=== PATIENT | female | born 1950 | race Caucasian/White ===

== ENCOUNTER 2021-09-10 09:20 | Day surgery (SDC) | payer MEDICARE, SELFPAY ==
[2021-09-03 15:39] VITALS: BMI 24.7
--- NOTE | 2021-09-08 13:29 | HO.ANESPROP2 ---
Documented by User: Tory Altamirano NP 09/08/21 13:30 HPI - Anesthesia Eval Consult details Narrative: 70yo F for Upper Endoscopy hx tonsilar CA s/p -ectomy 2018 [facility] Past Medical History Medical History Shankar's esophagus HTN (hypertension) Hx of breast cancer Hx of malignant neoplasm of tonsil Left bundle branch block (LBBB) Surgical History Surgical History History of esophagogastroduodenoscopy (EGD) History of removal of Port-a-Cath Hx of colonoscopy Hx of left mastectomy Hx of tonsillectomy Hx of tubal ligation Social History Social History Patient Tobacco Use Status: Former Tobacco user Quit Date: Tobacco use type: Cigarette Have you been hit, kicked, punched, or otherwise hurt by someone within the past year? If so, by whom?: No Are you DNR?: No Advance Directives: No (will bring dos) Advance Directives Information Provided: No Advance Directives on File: No Meds Allergies Allergy/AdvReac Type Severity Reaction Status Date / Time adhesive tape Allergy Rash Verified 09/03/21 15:38 Home Medications Medication Instructions Recorded Confirmed Last Taken Type atorvastatin 40 mg tablet 40 mg PO DAILY 09/03/21 09/03/21 Unknown History carvedilol 6.25 mg tablet 6.25 mg PO BID 09/03/21 09/03/21 Unknown History furosemide 20 mg tablet 20 mg PO BID 09/03/21 09/03/21 Unknown History valsartan 160 mg tablet 160 mg PO DAILY 09/03/21 09/03/21 Unknown History Exam Exam Date and Time: September 08, 2021 1329 Height,Weight and Vital Signs: Height 5 ft 3 in Weight 63.503 kg Assessment and Plan Assessment Anesthesia Assessment: Chart Reviewed Documented by User: Karime Schmidt MD 09/10/21 10:06 [facility] Past Medical History Medical History Shankar's esophagus HTN (hypertension) Hx of breast cancer Hx of malignant neoplasm of tonsil Left bundle branch block (LBBB) Family History Family history of problems with anesthesia: No Surgical History Surgical History History of esophagogastroduodenoscopy (EGD) History of removal of Port-a-Cath Hx of colonoscopy Hx of left mastectomy Hx of tonsillectomy Hx of tubal ligation History of Problems with Anesthesia: No Social History Social History Patient Tobacco Use Status: Former Tobacco user Quit Date: Tobacco use type: Cigarette Have you been hit, kicked, punched, or otherwise hurt by someone within the past year? If so, by whom?: No Are you DNR?: No Advance Directives: No (will bring dos) Advance Directives Information Provided: No Advance Directives on File: No Meds Allergies Allergy/AdvReac Type Severity Reaction Status Date / Time adhesive tape Allergy Rash Verified 09/03/21 15:38 Home Medications Medication Instructions Recorded Confirmed Last Taken Type atorvastatin 40 mg tablet 40 mg PO DAILY 09/03/21 09/03/21 Unknown History carvedilol 6.25 mg tablet 6.25 mg PO BID 09/03/21 09/03/21 Unknown History furosemide 20 mg tablet 20 mg PO BID 09/03/21 09/03/21 Unknown History valsartan 160 mg tablet 160 mg PO DAILY 09/03/21 09/03/21 Unknown History Exam Height,Weight and Vital Signs: Height 5 ft 3 in Weight 63.503 kg Vital Signs Temp Pulse Resp BP Pulse Ox 09/10/21 09:33 98.1 F 69 16 145/87 H 99 Airway Mallampati Class: II TM Dist: >3cm Neck ROM: Full Loose/Missing/Broken Teeth: No Heart: RRR Lungs: CTAB Assessment and Plan Assessment Anesthesia Assessment: Anesthesia Plan Discussed Final Anesthetic Review Family History of Problems with Anesthesia: No History of Problems with Anesthesia: No NPO: Yes ASA Class: II Final Preanesthetic Review: No Changes in Pt Med Stat, Meds/Allgs Chart Reviewed, Consent Obtained/Reviewed and Anes Risks/Benef Reviewed Patient Risk: Low Procedure Risk: Low Assessment/Block/Sedation in SS: Assess/Block/Sedation-SS Anesthetic Plan Anesthetic Plan: MAC: Disposition: Standard PACU
[2021-09-10 09:33] VITALS: BP 145/87; PULSE 69; RESP 16; TEMP 36.7; O2SAT 99
[2021-09-10] MEDS: Lactated Ringers 1,000 ML 100 ML IVCONT (09:45)
--- NOTE | 2021-09-10 10:13 | MHC.SHP ---
Pre-Procedural Eval Section A Date of Service: 09/10/21 The patient is an INPATIENT: No Changes since office visit: No Cold of Flu in the past 2 weeks, No New Medical Problems, No Changes in Medication and No Patient answered all questions The History & Physical has been completed within 30 days and I have reviewed it.: Yes Section B Chief Complaint: barretts Allergies: Allergies Allergy/AdvReac Type Severity Reaction Status Date / Time adhesive tape Allergy Rash Verified 09/03/21 15:38 Plan I have reviewed the history and physical and performed a pertinent physical examination on my patient. No changes have occurred unless specified.
--- NOTE | 2021-09-10 10:33 | P.BOP_ITS ---
Brief Operative Note Date of Service: 09/10/21 Pre-op diagnosis: barretts Post-op diagnosis: same Procedure: egd Surgeon: Vlad Zambrano Anesthesia: MAC Was an Fuel Storage Technician used for this Procedure?: No Estimated blood loss (mL): 2 Pathology: other (bxs antrum,egj) Condition: stable Disposition: PACU
[2021-09-10 10:37] VITALS: BP 80/45; PULSE 89; RESP 16; TEMP 36.4; O2SAT 98
--- NOTE | 2021-09-10 10:43 | OP_ITS ---
SURGEON: Vlad Zambrano MD INDICATIONS: Shankar's esophagus. PREOPERATIVE DIAGNOSIS: POSTOPERATIVE DIAGNOSIS: PROCEDURE PERFORMED: Upper endoscopy with biopsy. ESTIMATED BLOOD LOSS: COMPLICATIONS: ANESTHESIA: ASSISTANTS: SPECIMENS: MEDICATIONS: Monitored anesthesia care. DESCRIPTION OF PROCEDURE: History and physical performed. The risks and benefits of the procedure were explained to the patient. Informed consent was obtained. The patient was placed in the left lateral decubitus position. The Olympus video gastroscope was introduced into the esophagus, stomach, and duodenum. Examination was performed and the scope was removed. She tolerated the procedure well and was taken to recovery area in stable condition. FINDINGS: Esophagus: The esophagus was normal. There was a small sliding hiatal hernia. There was no esophagitis. Biopsies were obtained from the EG junction. Stomach: The stomach showed no evidence of masses, ulcers, or lesions. Antral biopsies were obtained. There was some mild nonspecific erythema involving the antrum. Duodenum: There was mild erythema involving the duodenal bulb. No ulcer was seen. The second portion was normal. IMPRESSION: Shankar's esophagus. RECOMMENDATION: Follow up the biopsy results. MD LONG Shaw/SHANIQUE / [id number]
[2021-09-10 10:52] VITALS: BP 127/68; PULSE 67; RESP 17; TEMP 36.4; O2SAT 98
== END 2021-09-10 11:18 | disposition home or self-care (01) ==
PROVIDERS: PCP Nurse Practitioner Family; Visit Provider Internal Medicine Gastroenterology
PROC: 0DJ08ZZ Inspection of Upper Intestinal Tract, Via Natural or Artificial Opening Endoscopic (ICD-10-PCS; CPT 43235; principal; 2021-09-10 10:40)
DX: K22.70 Barrett's esophagus without dysplasia (principal); K21.9 Gastro-esophageal reflux disease without esophagitis; K44.9 Diaphragmatic hernia without obstruction or gangrene; I10 Essential (primary) hypertension; Z79.899 Other long term (current) drug therapy; Z85.3 Personal history of malignant neoplasm of breast; Z85.818 Personal history of malignant neoplasm of other sites of lip, oral cavity, and pharynx; Z87.891 Personal history of nicotine dependence
CPT/HCPCS: 43239; 88305; 88342; J3010

== ENCOUNTER 2022-12-06 06:22 | Day surgery (SDC) | payer MEDICARE, SELFPAY ==
--- NOTE | 2022-12-05 10:23 | HO.ANESPROP2 ---
Documented by User: Tory Altamirano NP 12/05/22 10:24 HPI - Anesthesia Eval Consult details Narrative: 71yo F for Colonoscopy s/p EGD 2020 with MAC [facility] Past Medical History Medical History Shankar's esophagus HTN (hypertension) Hx of breast cancer Hx of malignant neoplasm of tonsil Left bundle branch block (LBBB) Family History Family history of problems with anesthesia: No Surgical History Surgical History History of esophagogastroduodenoscopy (EGD) History of removal of Port-a-Cath Hx of colonoscopy Hx of left mastectomy Hx of tonsillectomy Hx of tubal ligation History of Problems with Anesthesia: No Social History Social History Patient Tobacco Use Status: Former Tobacco user Quit Date: Tobacco use type: Cigarette Use of substances other than those prescribed or required for medical reasons: No Are you DNR?: No Advance Directives: No Advance Directives Information Provided: Yes Recently lost weight without trying: No Nutrition Risks: No Nutritional Risk Meds Allergies Allergy/AdvReac Type Severity Reaction Status Date / Time adhesive tape Allergy Rash Verified 09/03/21 15:38 Home Medications Medication Instructions Recorded Confirmed Last Taken Type atorvastatin 40 mg tablet 40 mg PO DAILY 09/03/21 12/06/22 Unknown History carvedilol 6.25 mg tablet 6.25 mg PO BID 09/03/21 12/06/22 12/06/22 History furosemide 20 mg tablet 20 mg PO BID 09/03/21 12/06/22 Unknown History valsartan 160 mg tablet 160 mg PO DAILY 09/03/21 12/06/22 12/06/22 History Exam Exam Date and Time: December 05, 2022 1023 Assessment and Plan Assessment Anesthesia Assessment: Chart Reviewed Final Anesthetic Review Family History of Problems with Anesthesia: No History of Problems with Anesthesia: No Documented by User: Siddhartha Hutson MD 12/06/22 07:27 PMFSH Past Medical History Medical History Shankar's esophagus HTN (hypertension) Hx of breast cancer Hx of malignant neoplasm of tonsil Left bundle branch block (LBBB) Surgical History Surgical History History of esophagogastroduodenoscopy (EGD) History of removal of Port-a-Cath Hx of colonoscopy Hx of left mastectomy Hx of tonsillectomy Hx of tubal ligation Social History Social History Patient Tobacco Use Status: Former Tobacco user Quit Date: Tobacco use type: Cigarette Use of substances other than those prescribed or required for medical reasons: No Are you DNR?: No Advance Directives: No Advance Directives Information Provided: Yes Recently lost weight without trying: No Nutrition Risks: No Nutritional Risk Meds Allergies Allergy/AdvReac Type Severity Reaction Status Date / Time adhesive tape Allergy Rash Verified 09/03/21 15:38 Home Medications Medication Instructions Recorded Confirmed Last Taken Type atorvastatin 40 mg tablet 40 mg PO DAILY 09/03/21 12/06/22 Unknown History carvedilol 6.25 mg tablet 6.25 mg PO BID 09/03/21 12/06/22 12/06/22 History furosemide 20 mg tablet 20 mg PO BID 09/03/21 12/06/22 Unknown History valsartan 160 mg tablet 160 mg PO DAILY 09/03/21 12/06/22 12/06/22 History Exam Airway Mallampati Class: II TM Dist: >3cm Neck ROM: Full Loose/Missing/Broken Teeth: No Heart: [id number] Lungs: cta b/l Assessment and Plan Assessment Anesthesia Assessment: Anesthesia Plan Discussed Final Anesthetic Review NPO: Yes ASA Class: III Final Preanesthetic Review: No Changes in Pt Med Stat, Meds/Allgs Chart Reviewed, Consent Obtained/Reviewed and Anes Risks/Benef Reviewed Patient Risk: Intermediate Procedure Risk: Low Assessment/Block/Sedation in SS: Assess/Block/Sedation-SS Anesthetic Plan Anesthetic Plan: MAC: and Agree w/ Assess. and Plan Disposition: Standard PACU
[2022-12-06 06:31] VITALS: BMI 25.8
[2022-12-06 06:38] VITALS: BP 171/100; PULSE 72; RESP 16; TEMP 36.3; O2SAT 99
[2022-12-06 06:50] VITALS: BP 159/90; PULSE 67
[2022-12-06] MEDS: Lactated Ringers 1,000 ML 100 ML IVCONT (06:59)
--- NOTE | 2022-12-06 07:36 | MHC.SHP ---
Pre-Procedural Eval Section A Date of Service: 12/06/22 Section B Chief Complaint: screening Details of Present Illness: see H&P no changes Relevant Family History (Specify if Yes): No Relevant Social History: None Present Medications: see Short Stay Collaborative assessment Medical History: No relevant PMH Allergies: Allergies Allergy/AdvReac Type Severity Reaction Status Date / Time adhesive tape Allergy Rash Verified 09/03/21 15:38 Review of Systems Sugical H&P ROS: Negative: Constitution, Cardiovascular, Respiratory, Neurological, Psychiatric, Hem-Onc, Allergic/Immunologic, Gastrointestinal, Genitourinary, Musculoskeletal, Integumentary, Endocrine and Eyes/Ears/Nose/Throat Exam Surgical H&P Exam: Normal: HEENT, Normal: Heart, Normal: Lungs, Normal: Extremities, Normal: Abdomen, Normal: Skin and Normal: Neurological Plan Diagnosis/Plan: Unchanged I have reviewed the history and physical and performed a pertinent physical examination on my patient. No changes have occurred unless specified. Time Spent With Patient Time: Total time managing care of this patient today ____ minutes.
[2022-12-06 08:09] VITALS: BP 92/49; PULSE 71; RESP 16; TEMP 36.6; O2SAT 96
[2022-12-06 08:24] VITALS: BP 135/72; PULSE 59; RESP 18; TEMP 36.6; O2SAT 97
--- NOTE | 2022-12-06 19:13 | OP_ITS ---
SURGEON: Vlad Zambrano MD INDICATIONS: Colon cancer screening and diverticulitis. PREOPERATIVE DIAGNOSIS: POSTOPERATIVE DIAGNOSIS: PROCEDURE PERFORMED: Colonoscopy to the cecum. ESTIMATED BLOOD LOSS: COMPLICATIONS: ANESTHESIA: Monitored anesthesia care. ASSISTANTS: SPECIMENS: DESCRIPTION OF PROCEDURE: Date: 12/06/22. A history and physical was performed. The risks and benefits of the procedure were explained to the patient and informed consent was obtained. The patient was placed in the left lateral decubitus position. A digital rectal exam was performed and was found to be normal. The Olympus pediatric video colonoscope was introduced into the rectum and advanced to the cecum without difficulty. The cecum was identified by transillumination palpation and identification of ileocecal valve. Examination was performed. The scope was removed. She tolerated the procedure well and was taken to the recovery area in stable condition. FINDINGS: The terminal ileum was examined and appeared normal. The visualized colonic mucosa was normal. The quality of the prep was good. No polyps were identified. There was mild sigmoid diverticulosis at about 40 cm extending down to about 20 cm from the anal verge. Retroflexed examination was normal. There were small internal hemorrhoids. IMPRESSION: Diverticulosis. RECOMMENDATIONS: 1. Follow up as needed. 2. Repeat screening could be considered in 10 years for average risk individuals. MD LONG Shaw/SHANIQUE / [id number] MTDD
== END 2022-12-06 08:41 | disposition home or self-care (01) ==
PROVIDERS: PCP Nurse Practitioner Family; Visit Provider Internal Medicine Gastroenterology
PROC: 0DJD8ZZ Inspection of Lower Intestinal Tract, Via Natural or Artificial Opening Endoscopic (ICD-10-PCS; CPT 45378; principal; 2022-12-06 07:30)
DX: Z12.11 Encounter for screening for malignant neoplasm of colon (principal); K57.30 Diverticulosis of large intestine without perforation or abscess without bleeding; K64.8 Other hemorrhoids; K22.10 Ulcer of esophagus without bleeding; K21.9 Gastro-esophageal reflux disease without esophagitis; Z87.19 Personal history of other diseases of the digestive system; I10 Essential (primary) hypertension; Z79.899 Other long term (current) drug therapy; Z85.3 Personal history of malignant neoplasm of breast; Z90.12 Acquired absence of left breast and nipple; Z85.21 Personal history of malignant neoplasm of larynx; Z92.21 Personal history of antineoplastic chemotherapy; Z92.3 Personal history of irradiation; L23.1 Allergic contact dermatitis due to adhesives; Z87.891 Personal history of nicotine dependence
CPT/HCPCS: G0121

== ENCOUNTER 2024-01-23 06:27 | Outpatient (REF) | payer MEDICARE, SELFPAY ==
[2024-01-23 07:22] LABS: Hematocrit 39.8 % (37.0-47.0); Hemoglobin 13.5 g/dl (12.0-16.0); Mean Corpuscular HGB Conc 33.9 g/dl (31.0-35.0); Mean Corpuscular Hemoglobin 32.7 pg (27.0-33.0); Mean Corpuscular Volume 96.4 fL (80.0-98.0); Mean Platelet Volume 8.9 fL (9.4-12.3); Platelet Count 282 X10*3/uL (160-400); Red Blood Count 4.13 X10*6/uL (4.20-5.50); Red Cell Distribution Width 13.2 % (11.0-16.0); White Blood Count 6.3 X10*3/uL (4.8-10.8)
[2024-01-23 07:56] LABS: Alanine Aminotransferase 16 U/L (0-31); Albumin Level 3.8 g/dL (3.5-5.0); Alkaline Phosphatase 91 U/L (39-117); Aspartate Amino Transferase 26 U/L (5-31); Bilirubin Direct 0.2 mg/dL (0.0-0.5); Bilirubin Total 0.6 mg/dL (0.0-1.0); Blood Urea Nitrogen 9 mg/dL (9-16); Estimated Glomerular Filt Rate > 60; Lipase 23 U/L (8-78); Total Protein 6.3 g/dL (6.5-8.0)
== END 2024-01-23 06:28 | disposition home or self-care (01) ==
LOC: HO.LAB 06:27
PROVIDERS: PCP Nurse Practitioner Family; Visit Provider Internal Medicine Gastroenterology
DX: K57.32 Diverticulitis of large intestine without perforation or abscess without bleeding (principal)
CPT/HCPCS: 36415; 80076; 82565; 83690; 84520; 85027

== ENCOUNTER 2024-03-21 08:16 | Outpatient (REF) | payer MEDICARE, SELFPAY ==
--- NOTE | ~2024-03-21 | CT_ITS ---
EXAMINATION: CT ABDOMEN AND PELVIS WITH CONTRAST CLINICAL INFORMATION: Sigmoid diverticulitis COMPARISON: None available. TECHNIQUE: Multidetector volumetric images were obtained from the superior aspect of the liver through the pubic symphysis following administration 85 mL of Omnipaque 350 intravenous contrast. Sagittal and coronal reformatted images were obtained on the technologist's workstation. Oral contrast: No This CT examination was performed using dose optimization techniques as appropriate, variously including the following: *Automated exposure control *Adjustment of mA and/or kV according to patient size (this includes techniques or standardized protocols for targeted exams where dose is matched to indication/reason for exam; i.e. extremities or head) *Use of iterative reconstruction technique DLP: 466 mGy-cm FINDINGS: LUNG BASES: The visualized lung bases are unremarkable. LIVER, GALLBLADDER, AND BILIARY TREE: The liver is normal in size, shape, and attenuation. No biliary ductal dilatation. Multiple hepatic cysts. The gallbladder is unremarkable with no evidence of radiopaque gallstones, gallbladder wall thickening, or obvious pericholecystic inflammatory changes. PANCREAS: Unremarkable. SPLEEN: Unremarkable. ADRENAL GLANDS: Unremarkable. KIDNEYS AND URETERS: The kidneys are normal in size, shape, and attenuation. No hydronephrosis, hydroureter, or calculi seen. No perinephric stranding. BLADDER: Unremarkable. GASTROINTESTINAL TRACT: The small and large bowel are unremarkable. Sigmoid diverticulosis. There is short segment region of wall thickening and surrounding inflammatory changes in the left pelvis. No abscess or extraluminal air. ABDOMINAL WALL: No significant hernia is appreciated. LYMPH NODES: Normal. VASCULAR: Unremarkable. PELVIC VISCERA: The uterus and adnexa are unremarkable. OSSEOUS STRUCTURES: Degenerative disease of the lumbar spine. CT/CT abdomen pelvis w IV con IMPRESSION: Acute uncomplicated sigmoid diverticulitis. Fleischner guidelines were followed.
[2024-03-21] MEDS: Barium Sulfate Oral (Mocha) 450 ML ORAL.SUSP 900 ML PO (11:14)
[2024-03-21] MEDS: iohexoL 350 MG/ML 100 ML INFUS..BTL IV (11:14)
[2024-03-25 07:21] LABS: Creatinine POC 0.6 mg/dL (0.5-1.4); GFR POC > 60
== END 2024-03-21 08:17 | disposition home or self-care (01) ==
LOC: HO.CT 08:16
PROVIDERS: PCP Nurse Practitioner Family; Visit Provider Internal Medicine Gastroenterology
DX: K57.32 Diverticulitis of large intestine without perforation or abscess without bleeding (principal)
CPT/HCPCS: 74177; 82565; Q9967